=== PATIENT | female | born 1940 | race Caucasian/White ===

== ENCOUNTER 2019-09-09 17:46 | Inpatient (IN) | payer OTHER ==
[~2019-09-09] VITALS: Ht 169.1 cm; Wt 63.6 kg
[2019-09-09] MEDS ORDERED: DULOXETINE HCL30 MG PO (20:12)
[2019-09-09] MEDS ORDERED: ATORVASTATIN CA40 M1 PO (20:13)
[2019-09-09] MEDS ORDERED: ASPIR LOW81 MG PO (20:14)
[2019-09-09] MEDS ORDERED: DULOXETINE HCL60 MG PO (20:15)
[2019-09-09] MEDS ORDERED: RIVASTIGMINE1 EAC2 TD (20:15)
[2019-09-09] MEDS ORDERED: ZETIA10 MG PO (20:17)
[2019-09-09] MEDS ORDERED: ISOSORBIDE DINI30 MG PO (20:18)
[2019-09-09] MEDS ORDERED: NATURE'S BLEND F1 MG PO (20:18)
[2019-09-09] MEDS ORDERED: JANUVIA100 MG PO (20:19)
[2019-09-09] MEDS ORDERED: LANTUS SOL100 UNIT/1 SQ (20:19)
[2019-09-09] MEDS ORDERED: FUROSEMIDE40 MG PO (20:20)
[2019-09-09] MEDS ORDERED: LEVOFLOXACIN250 M2 PO (20:21)
[2019-09-09] MEDS ORDERED: METOPROLOL SUC100 M1 PO (20:22)
[2019-09-09] MEDS ORDERED: GABAPENTIN600 MG PO (20:23)
[2019-09-09] MEDS ORDERED: GLIPIZIDE5 MG PO (20:24)
[2019-09-09] MEDS ORDERED: METFORMIN HYDR500 MG PO (20:25)
[2019-09-09] MEDS ORDERED: HYDRALAZINE10 MG PO (20:26)
[2019-09-09] MEDS ORDERED: PEPCID20 MG PO (20:27)
[2019-09-09] MEDS ORDERED: RISPERIDONE0.25 M2 PO (20:29)
[2019-09-09] MEDS ORDERED: NOVOLOG FL100 UNIT/2 SQ (20:32)
[2019-09-09] MEDS ORDERED: PROVENTIL HFA6.7 GM INH (20:36)
[2019-09-09] MEDS ORDERED: HYDROXYZINE PAM25 M1 PO (20:36)
[2019-09-10 00:55] VITALS: BP 148/69
--- NOTE | 2019-09-10 00:55 | NUR ---
MYRTLE RENE a 79 year old F admitted via wheel chair from the ADMITTING as a voluntary admission. Arrived on unit at 0055. ALLERGIES: PCN AND SULFA. Vital signs are: [id number] 148/69. The client's POA,Chelle Rosa,gave verbal consent for the following forms with stated understanding: Authorization For The Release of Medical Information, Clothing List, Consent to Voluntary Admission and Hospitalization, Consent and Release Forms/Receipt of Rights, Acknowledgement of Advance Directive Information, Behavioral Health Consent Form, and Informed Consent of Medications. Admitted under the services of Dr. LYRIC KASPER,[facility]. A search was conducted and hazardous articles were removed. Client was oriented to the unit. Pacemaker noted on lt chest skin intact. SANDRA PATTERSON A
--- NOTE | 2019-09-10 01:25 | NUR ---
Dr. Ruggiero on unit and was notified of pt's admission and consult for medical management.
--- NOTE | 2019-09-10 02:14 | NUR ---
MYRTLE RENE [id number] Please refer to the physician's history and physical for past medical history, comorbid conditions, and allergies. Diagnosis: INTERMITTENT EXPLOSIVE DISORDER Robert Score: 17,AT RISK WOUND DESCRIPTIONS: Patient has callus area noted to left medial aspect of great toe measuring 0.4cm x 0.2cm x <0.1cm. Pale pink in color. No open areas noted at time of assessment. No drainage noted at time of assessment. Bilateral heels and toes have several areas that are red and blanchable at time of assessment. No open areas noted to heels and toe at time of assessment. No drainage at time of assessment. Surface the patient is resting on: Proform SKIN PREVENTION RECOMMENDATION: 1. Pressure redistribution support surface as appropriate 2. Elevate heels 3. Remove boots/TEDS every shift and reapply 4. Head of bed 30 degrees as tolerated 5. Assess nutrition and hydration 6. Manage moisture 7. Avoid the use of containment devices while in bed 8. Use absorptive products on surfaces limit layers of linens on bed 9. Turn and reposition every 1-2 hours in bed and every 1 hour in chair as tolerated 10. Weight shifts every 15 minutes while up in chair 11. Offloading with pillows or device to keep heels elevated off bed 12. Monitor skin at least every shift 13. Inspect under medical devices twice a day WOUND TREATMENT RECOMMENDATIONS: Apply moisturizing lotion to feet daily and prn for dryness. Heel raiser pro boots to bilateral feet while in bed.
[2019-09-10 06:51] LABS: BASO % 0.6 % (0.0-1.0); EOS # 0.4 10*3/uL (0.0-0.4); EOS % 5.8 % (1.0-4.0); HEMATOCRIT 30.4 % (37.0-47.0); HEMOGLOBIN 8.7 g/dl (12.0-16.0); LYMPH # 1.1 10*3/uL (1.3-4.4); LYMPH % 16.2 % (27.0-41.0); MEAN CELL VOLUME 87.9 fl (81.0-99.0); MEAN CORPUSCULAR HGB 25.1 pg (27.0-31.0); MEAN CORPUSCULAR HGB CONC 28.6 g/dl (33.0-37.0); MEAN PLATELET VOLUME 10.1 fl (9.6-12.3); MONO # 0.6 10*3/uL (0.1-1.0); MONO % 8.4 % (3.0-9.0); NEUT # 4.6 10*3/uL (2.3-7.9); NEUT % 68.7 % (47.0-73.0); PLATELET COUNT AUTOMATED 236 10*3/uL (130-400); RED BLOOD COUNT 3.46 10*6/uL (4.10-5.10); RED CELL DISTRI WIDTH 20.3 % (0-14.5); WHITE BLOOD COUNT 6.7 10*3/uL (4.8-10.8)
[2019-09-10 07:06] LABS: ALBUMIN 3.3 gm/dl (3.1-4.5); CREATININE 1.59 mg/dL (0.55-1.02); POTASSIUM 4.6 mmol/L (3.5-5.1)
[2019-09-10 07:14] LABS: THYROID STIM HORMONE (HS) 0.602 uIU/ml (0.358-4.75); TOTAL PROTEIN 7.6 gm/dL (6.4-8.2); VITAMIN D, 25-HYDROXY 13.6 ng/mL (30-100)
--- NOTE | 2019-09-10 08:00 | NUR ---
Treatment Plan meeting was held with Dr. Bernard, SASHA Bradley, RN, AT, WET SILK HANGER-S and Bed And Breakfast Innkeeper. Plan for discharge next week. Pt. [facility] to [facility] from [facility]. Will reach out to facility today to discuss discharge Planning.
[2019-09-10 08:20] VITALS: BP 157/81
--- NOTE | 2019-09-10 11:40 | NUR ---
Left Message at [facility] for Milagros to discuss discharge Planning.
--- NOTE | 2019-09-10 11:45 | NUR ---
AM GROUP PT ATTENDED MORNING GROUP THERAPY AND PARTICIPATED BY SOCIALIZING AND COLORING. PT WAS FOCUSED AND ON TASK. PT EXPRESSED NO PARANOID IDEATIONS, AGITATION OR ANXIETY WHILE IN GROUP.
--- NOTE | 2019-09-10 12:50 | NUR ---
PT COMPLAINT AND COOPERATIVE WITH CARE AND MEDICATIONS, PARTICIPATED IN GROUP COLORING EXERCISE.
--- NOTE | 2019-09-10 15:47 | NUR ---
PM GROUP PT WAS PRESENT FOR AFTERNOON GROUP THERAPY AND WAS SLEEPING SITTING IN A WHEELCHAIR AT THE TABLEL. PT WOKE AND BEGAN CONVERSING WITH PT. PT WAS MAKING STATEMENTS THAT DID NOT MAKE SENSE BUT CONTINUED TO TALK ABOUT ISSUES THAT BOTHERED HER? PT WAS HYPERVERBAL AND SEEMED TO NOT NOTICE WHEN OTHERS WOULD TRY TO TALK. PT EXPRESSED NO PARANOIA OR ANXIETY WHILE IN GROUP.
--- NOTE | 2019-09-10 18:28 | NUR ---
PATIENT IS ALERT TO PERSON, PLACE, AND SITUATION WITH CONFUSION; MEMORY GAPS NOTED. MOOD IS STABLE, CALM DEMEANOR. DENIES ANY HALLUCINATIONS, DELUSIONS, HI/SI OR PAIN. INTERACTIVE WITH STAFF AND OTHER PATIENTS. PARTICIPATES IN GROUP SESSION. 1 PERSON ASSIST WITH ACTIVITIES OF DAILY LIVING, CONTINENT OF BOWEL AND BLADDER. SET UP FOR MEALS, INTAKES ARE GOOD WITH ADEQUATE FLUIDS. UP IN WHEELCHAIR. MEDICATION COMPLAINT. Q 15 MINUTE SAFETY CHECKS MAINTAINED. NO AGGRESSION OBSERVED. CONTINUE TO MONITOR FOR AGGRESSION AND EXIT SEEKING. PROVIDE ONE ON ONE AND REDIRECTION NEEDED.
[2019-09-10 20:02] VITALS: BP 126/72
--- NOTE | 2019-09-10 20:32 | NUR ---
EVENING/LEISURE SKILLS PT IN ATTENDANCE AND PARTICIPATED BY ROLLING OUT SALT DOWN HEARTS. PT EXPRESSES NO ANXIETY, AGITATION, OR PARANOIA AT THIS TIME. PT WILL CONTINUE TO ATTEND AND PARTICIPATE IN FUTURE GROUP SESSIONS TO BEST OF PT ABILITY.
--- NOTE | 2019-09-10 23:07 | NUR ---
P-CONFUSED, PARANOID, ST/LT MEMORY DEFICITS. I-PRESENT REALITY AND REORIENT. PROVIDE 1:1 WITH THERAPEUTIC INTERVENTIONS. PROVIDE REASSURANCE AND SUPPORT. ENCOURAGE MEDICATION COMPLIANCE AND EDUCATE. MAINTAIN ELOPEMENT PRECAUTIONS.MONITOR SLEEP. R-"YOU ALL ARE IMPRISONING ME, IM BEING HELD AGAINST MY WILL, WHAT AM I DOING HERE". PT ALERT TO SELF, CONFUSED. PT REQUIRES FREQUENT REORIENTATION AND REALITY PRESENTATION DURING INTERACTIONS. PT OTHERWISE CALM, INTERACTIVE. PT EASILY REDIRECTED WHEN APPROPRIATE. PT MEDICATION COMPLIANT WITHOUT DIFFICULTY AFTER REVIEW. PT DENIES SI/HI, HALLUCINATIONS, OR PAIN. NO EXIT SEEKING OR AGGRESSIVE BEHAVIORS NOTED. PT MOBILIZES SELF USING A WHEELCHAIR, ASSIST X1, CONTINENT OF BOWEL AND BLADDER. NO SIGNS OR SYMPTOMS OF DISTRESS NOTED. P-CONTINUE TO MONITOR MOOD AND BEHAVIORS. PROVIDE 1:1 WITH THERAPEUTIC INTERVENTIONS. PRESENT REALITY AND REORIENT NEEDED. ENCOURAGE MEDICATION COMPLIANCE AND EDUCATE. MAINTAIN Q 15 MIN CHECKS AND ELOPEMENT PRECAUTIONS.
--- NOTE | 2019-09-11 02:10 | NUR ---
P-PARANOID THOUGHT PROCESS I-PRESENTED REALITY WITH REORIENTATION. PROVIDED 1:1 WITH THERAPEUTIC INTERVENTIONS. PROVIDED REASSURANCE AND SUPPORT. R-"EVERYONE IS LYING TO ME AND IM NOT GOING TO STAND FOR IT". ATTEMPTS TO PROVIDE THERAPEUTIC INTERVENTIONS WITH REDIRECTION UNSUCCESSFUL AT THIS TIME. PT ALSO REFUSES TO GO TO BED STATING "THERE IS NO POINT TO GOING TO BED, I JUST GET UP EARLY ANY HOW". PT ENCOURAGED TO SIT IN A COMFY CHAIR WITH A WARM BLANKET AT THIS TIME IN DINING ROOM TO HELP RELAX. PT SITTING QUIETLY, NO DISTRESS NOTED. P-WILL CONTINUE TO MONITOR FOR ESCALATING BEHAVIORS. REDIRECT WHEN APPROPRIATE. PRESENT REALITY AND ORIENTATION NEEDED. MAINTAIN ELOPEMENT PRECAUTIONS AND Q 15 MIN SAFETY CHECKS.
--- NOTE | 2019-09-11 02:57 | NUR ---
24 HOUR CHART CHECK COMPLETED
--- NOTE | 2019-09-11 05:43 | NUR ---
PT OBSERVED ON Q 15 MIN CHECKS TO HAVE SLEPT APPROX 3 HOURS THIS SHIFT WITH NO AWAKENINGS OR SIGNS AND SYMPTOMS OF DISTRESS NOTED.
--- NOTE | 2019-09-11 08:00 | NUR ---
Treatment Plan meeting held with Dr. Bernard, SASHA Bradley, RN, AT, RELATIONS SPECIALIST-S and Routing Machine Operator in attendance. Plan for discharge next week with return to [facility].
[2019-09-11 08:01] VITALS: BP 130/68
--- NOTE | 2019-09-11 11:13 | NUR ---
Left Message for Mitra Guerra at [facility] to discuss discharge Planning.
--- NOTE | 2019-09-11 11:44 | NUR ---
AM GROUP/EXERCISE AND BRAIN GAMES PT ATTENDED MORNING GROUP THERAPY AND PARTICIPATED IN ALL ACTIVITIES. PT EXPRESSED NO DELUSIONS OR ANXIETY WHILE IN GROUP. PT WAS ENGAGED AND ON TOPIC.
--- NOTE | 2019-09-11 11:48 | NUR ---
Spoke with Mtira Guzmán traffic administrator at [facility]. Pt. is LTC and Bed Hold at facility. Will return at discharge. Clinical Updates faxed to Facility.
--- NOTE | 2019-09-11 12:14 | NUR ---
Faxed admission clinical to [facility]. Awaiting response.
--- NOTE | 2019-09-11 13:53 | NUR ---
Clinical Updates faxed to [facility].
--- NOTE | 2019-09-11 15:39 | NUR ---
PM GROUP/WATERCOLORS AND MUSIC PT ATTENDED AFTERNOON GROUP THERAPY AND PARTICIPATED IN ALL ACTIVITIES. PT WAS QUIET AND FOCUSED. PT EXPRESSED NO PARANOID IDEATIONS WHILE IN GROUP.
[2019-09-11 16:18] LABS: BILIRUBIN NEGATIVE (NEGATIVE); BLOOD NEGATIVE (NEGATIVE); CLARITY CLEAR (CLEAR); COLOR YELLOW (YELLOW); GLUCOSE TRACE (NEGATIVE); KETONE NEGATIVE (NEGATIVE); LEUKO ESTERASE NEGATIVE (NEGATIVE); NITRITE NEGATIVE (NEGATIVE); UROBILINOGEN 0.2 E.U./dl (0.2-1.0)
[2019-09-11 16:21] LABS: BACTERIA TRACE; EPITHELIAL CELLS 15-20
--- NOTE | 2019-09-11 16:30 | NUR ---
P: DELUSIONAL THOUGTHS VOICED. PATIENT TELLING MENTAL HEALTH WORKER THAT THERE WAS A BOMB THAT WENT OFF AT THE HOSPITAL. I: ONE ON ONE AND REDIRECTION PROVIDED. R: EFFECTIVE. PATIENT EASILY REDIRECTABLE. P: CONTINUE TO MONITOR FOR HALLUCINATIONS AND AGGRESSION. PROVIDE ONE ON ONE AND REDIRECTION NEEDED.
--- NOTE | 2019-09-11 16:32 | NUR ---
PATIENT HAD CRITICAL HIGH BLOOD SUGAR, RECHECKED BLOOD SUGAR. DR. CORTEZ NOTIFIED, TO CONTINUE SLIDING SCALE AND WILL CONTINUE TO MONITOR.
[2019-09-11 19:43] VITALS: BP 118/68
--- NOTE | 2019-09-11 20:13 | NUR ---
24 HR chart check completed.
--- NOTE | 2019-09-11 21:29 | NUR ---
P-CONFUSION I-PROVIDE 1;1, ASSESS ORIENTATION, ADMINISTER MEDS, MONITOR SLEEP R-PT IS CONFUSED. ALERT TO PERSON & PLACE. SHORT & ACCOUNT RESOLUTION ANALYST MEMORY DEFICITS, DEPRESSED MOOD, LIMITED VERBAL INTERACTIONS, ATE SNACK, COMPLIANT WITH MEDS, MOVES INDEPENDENTLY VIA WHEELCHAIR. STATED THAT SHE IS TIRED & PLANS ON SLEEPING IN A BED TONIGHT. P-CONTINUE TO MONITOR & PROVIDE PHYSICAL & EMOTIONAL SUPPORT NEEDED.
--- NOTE | 2019-09-12 00:43 | NUR ---
24 HR chart check completed.
--- NOTE | 2019-09-12 06:42 | NUR ---
client at bedroom door. states she lost her bottom denture. denture was seen at 6am. told her to look in bed and she had put them under her pillow. reminded client she needs to take them out to soak at night . will pass on to next shift
[2019-09-12 07:54] VITALS: BP 137/82
--- NOTE | 2019-09-12 08:00 | NUR ---
Patient eating breakfast quietly with no c/o discomfort. Respirations easy and regular. Vital signs stable. No overt distress. WEI LAMBERT
--- NOTE | 2019-09-12 08:00 | NUR ---
Treatment Plan meeting was held with Dr. Bernard, RN, AT and Licensed Bondsman. Plan for discharge Next week. Pt. will return to [facility] at [facility] at discharge.
--- NOTE | 2019-09-12 10:50 | NUR ---
pt is alert, pleasant, is somewhat confused. pt reoriented. pt is oriented to person only, approximate to time. states that the year is 2019 and the president is Theodore. pt reoriented to time and place, receptive, stating "oh why would i say, Theodore, I know it is Trump!". will continue to reorient and redirect pt as appropriate. will continue to encourage continued medication compliance. q15 min monitoring per policy for safety.
--- NOTE | 2019-09-12 11:18 | NUR ---
DR. BURNS MADE AWARE OF PT BLOOD SUGAR 333, REPEAT OF 343. STATES TO GIVE SLIDING SCALE COVERAGE.
--- NOTE | 2019-09-12 11:46 | NUR ---
AM GROUP PT ATTENDED MORNING GROUP THERAPY AND PARTICIPATED BY READING THE NEWSPAPER AND SOCIALIZING WITH THIS ASPHALT WORKER. PT EXPRESSED NO DELUSIONAL IDEATIONS OR ANXIETY WHILE IN GROUP.
--- NOTE | 2019-09-12 15:39 | NUR ---
PM GROUP PT ATTENDED AFTERNOON GROUP THERAPY AND PARTICIPATED IN ALL ACTIVITIES. PT IS PLEASANTLY CONFUSED. PT EXPRESSED NO DELUSIONAL IDEATIONS WHILE IN GROUP.
--- NOTE | 2019-09-12 16:17 | NUR ---
PT SHOWERED AT THIS TIME. IN DINING ROOM WITH PEERS WATCHING A MOVIE.
[2019-09-12 19:54] VITALS: BP 152/77
--- NOTE | 2019-09-12 23:07 | NUR ---
P-CONFUSION I-REDIRECTION WITH 1:1 THERAPEUTIC INTERVENTIONS AND PRESENT REALTIY. EDUCATE AND ENCOURAGE MEDICATION COMPLIANCE R-PATIENT MEDICATION COMPLIANT WITH HS MEDICATIONS. PATIENT PROVIDED NOURISHMENT AT HS AND PROVIDED FLUIDS. PATIENT INTERACTING WITH PEERS IN DINING AREA. PATIENT REDIRECTED IN DINING AREA WHEN ATTEMPTING TO AMBULATE WITHOUT ASSISTANCE. PATIENT WITH UNSTEADY GAIT WHEN TRANSFERRING. PATIENT WITH NO HALLUCINATIONS OR DELUSIONS. PATIENT WITH NO SUICIDAL OR HOMICIDAL IDEATIONS. P-CONTINUE TO ENCOURAGE MEDICATION COMPLAINCE, CONTINUE TO PRESENT REALITY, ENCOURAGE GROUP THERAPY WHILE AWAKE
--- NOTE | 2019-09-13 05:31 | NUR ---
PATIENT SLEPT 8 HOURS OF INTERRUPTED SLEEP THROUGHOUT SHIFT. Q 15 MINUTE CHECKS MAINTAINED. 24 HR chart check completed.
[2019-09-13 07:38] VITALS: BP 115/65
--- NOTE | 2019-09-13 11:42 | NUR ---
AM GROUP/BEADING PT ATTENDED MORNING GROUP AND PARTICIPATED IN ALL ACITIVITES. PT WAS ON TASK AND FOCUSED. PT EXPRESSED NO DELUSIONS OR ANXIOUS IDEATIONS WHILE IN GROUP.
--- NOTE | 2019-09-13 14:26 | NUR ---
Clinical Updates faxed to Mari at [facility].
--- NOTE | 2019-09-13 14:31 | NUR ---
P: CONFUSION I: ONE ONE ONE FOR EMOTIONAL SUPPORT, REDIRECTION/ORIEATION PROVIDED R: EFFECTIVE. PATIENT IS ALERT TO PERSON ONLY WITH CONFUSION. PATIENT IS AWARE OF YEAR 2020. MOOD IS SLIGTLY ANXIOUS AND DEPRESSED. COOPERATIVE WITH CALM DEMEANOR. PATIENT REDIRECTED SEVERAL TIMES TO NOT TRY TO LEADERSHIP RECRUITER STUFF OFF THE FLOOR. POOR SAFETY AWARENESS, CUEING AND REMINDER PROVIDED. NO VOICED STATEMENTS OF HI/SI OR PAIN. DENIES HALLUCINATIONS AND DELUSIONS. Q 15 MINUTE SAFETY CHECKS MAINTAINED. MEDICATION COMPLAINT. 1 PERSON ASSIST WITH ACTIVITIES OF DAILY LIVING, CONTINENT OF BOWEL AND BLADDER. SETUP FOR MEALS, INTAKES ARE GOOD WITH ADEQUATE FLUIDS. NO AGGRESSION OBSERVED. P: CONTINUE TO MONITOR FOR AGGRESSION, HALLUCINATIONS AND EXIT SEEKING. PROVIDE ONE ON ONE AND REDIRECTION NEEDED.
--- NOTE | 2019-09-13 15:43 | NUR ---
PM GROUP/MOVIE PT WAS PRESENT FOR AFTERNOON GROUP THERAPY AND WATCHED THE MOVIE BETWEEN FALLING ASLEEP. SUDDENLY PT REMOVED HER SHIRT STATING THAT SHE HAD TO PUT IT IN THE WASHER. MHW ASSISTED PT WHO THEN WENT BACK TO SLEEP.
[2019-09-13 19:07] VITALS: BP 123/73
--- NOTE | 2019-09-13 23:47 | NUR ---
P- PLEASANTLY CONFUSED. I- ORIENTATION, MOOD AND BEHAVIOR ASSESSED. ASSESSED PT FOR SI/HI, INTENT OR PLAN. ASSESSED PT FOR S/S HALLUCINATIONS, PARANOIA AND/OR DELUSIONS. HS MEDICATIONS GIVEN ORDERED. ASSISTANCE WITH ADL CARE PROVIDED NEEDED. FALL RISK PRECAUTIONS MAINTAINED. REST ENCOURAGED. R- PT IS ALERT WITH CONFUSION. MEMORY GAPS NOTED. PT PLEASANT AND COOPERATIVE. MOOD STABLE. AFFECT APPROPRIATE. PT DENIES SI/HI, INTENT OR PLAN. PT DENIES HALLUCINATIONS, NO RESPONSE TO INTERNAL STIMULI NOTED. NO PARANOIA OR DELUSIONS NOTED. PT HAS BEEN RESTING QUIETLY IN BED WITH EYES CLOSED SINCE APPROXIMATELY 1900, PT AWAKENED EASILY FOR HS MED PASS, PT MED COMPLIANT AND RETURNED TO SLEEP. NO BEHAVIORS. NO DISTRESS NOTED. P- PLAN TO CONTINUE CURRENT TREATMENT, CONTINUE TO MONITOR MOOD AND BEHAVIORS, PROVIDE APPROPRIATE REORIENTATION, REDIRECTION AND 1:1 NEEDED.
[2019-09-14 07:23] VITALS: BP 138/77
--- NOTE | 2019-09-14 08:46 | NUR ---
DR ROBERTSON ON UNIT TO ASSESS PT, UPDATE PROVIDED.
--- NOTE | 2019-09-14 11:16 | NUR ---
SPOKE WITH DR MAGANA AT [phone] RE: PT BLOOD SUGAR RESULTS OF 408 AND REPEAT TESTING SHOWING 420. PER DR. MAGANA GIVE SLIDING SCALE AND RECHECK IN 1 HOUR.
--- NOTE | 2019-09-14 11:58 | NUR ---
AM GROUP/EXERCISE/MUSIC/LEISURE PT ATTENDS AND PARTICIPATES IN ALL GROUP ACTIVITY. PT PLEASANT AND ON TASK WITH NO PARANOIA OR ANXIETY EXPRESSED AT THIS TIME. PT WILL CONTINUE TO ATTEND AND PARTICIPATE IN FUTURE GROUP SESSIONS TO BEST OF PT ABILITY.
--- NOTE | 2019-09-14 12:22 | NUR ---
SPOKE WITH DR MAGANA AT [phone] RE: PT BLOOD SUGAR AFTER 22 UNITS AND 1 HOUR IS 278, PER DR MAGANA COVER HER WITH SLIDING SCALE AND RECHECK IN ONE HOUR. WITNESSED BY 2ND RN JULIA SCHAFER.
--- NOTE | 2019-09-14 12:22 | NUR ---
SPOKE WITH DR MAGANA AT [phone] RE: PT BLODD SUGAR OF 378 AFTER 22 UNITS OF SLIDING SCALE INSULIN COVERAGE AND [address] HAUSER, COVER WITH SLIDING SCALE AGAIN AND RECHECK IN 1 HOUR. WITNESSED BY 2ND RN JULIA SCHAFER.
--- NOTE | 2019-09-14 13:32 | NUR ---
SPOKE WITH DR MAGANA AT [phone] ADVISED THAT PT RECEIVED 20 UNITS FOR THE 378 READING AND IS NOT 315 AFTER ONE HOUR, PER DR MAGANA COVER PT WITH SLIDING SCALE. WITNESSED BY 2ND RN JULIA SCHAFER.
--- NOTE | 2019-09-14 13:41 | NUR ---
PT GIVEN 15 UNITS PER SLIDING SCALE ORDERS. PT BECOMING UPSET WITH THIS NURSE STATING "YOU NEED TO CALL MY DOCTOR AND ASK HIM" I ADVISED THAT I HAVE SPOKEN TO THE DR HERE THAT IS HANDLING HER MEDICAL CARE AND HE HAS ORDERED FOR US TO CONTINUE WITH BLOOD SUGAR CHECKS AND INSULIN COVERAGE DUE TO HER HIGH BLOOD GLUCOSE LEVELS. PT ALLOWED THIS NURSE TO GIVE INUSLIN. WILL CONTINUE TO MONITOR.
--- NOTE | 2019-09-14 14:42 | NUR ---
SPOKE WITH DR MAGANA AT [phone] ADVISED THAT PT BLOOD SUGAR IS 175 AT THIS TIME, NO FURTHER ORDERS.
--- NOTE | 2019-09-14 15:33 | NUR ---
P: PT IRRITABLE AT TIMES WITH STAFF, MOOD IS LABILE. I: PROVIDE EMOTIONAL SUPPORT AND 1:1 FOR PT TO VOICE FEELINGS R: PT ALERT TO PERSON ONLY, CONFUSION AND SHORT TERM MEMORY DEFICITS NOTED PER PT BASELINE. PT CALM, MOOD REMAINS LABILE. NO HALLUCINATIONS OR DELUSIONS NOTED AT THIS TIME. NO SUICIDAL THOUGHTS OR BEHAVIORS NOTED. PT MED COMPLIANT WITHOUT DIFFICULTY. PT UP TO WHEELCHAIR, REQUIRES 1 STAFF ASSIST FOR TRANSFERS AND CARE. PT CONTINENT OF BOWEL AND BLADDER, EPISODES OF INCONTINENCE NOTED, CARE PROVIDED NEEDED. P: MONITOR PT BEHAVIORS ON Q15 MIN SAFETY CHECKS, ENCOURAGE MED COMPLIANCE, UNABLE TO PROVIDE MED EDUCATION D/T COGNITION, PROVIDE EMOTIONAL SUPPORT AND 1:1 FOR PT TO VOICE FEELINGS, ENCOURAGE GROUP PARTICIPATION AND SOCIALIZATION.
--- NOTE | 2019-09-14 15:58 | NUR ---
PM GROUP/MOVIE/LEISURE PT IN ATTENDNACE AND PARTICIPATED BY WATCHING MOVIE. PT WORKED SOME ON A COLORING SHEET WELL. PT PLEASNAT WITH NO PARANOIA./ANXIETY EXPRESSED AT THIS TIME. PT WILL CONTINUE TO ATTEND AN DPARTICIPATE IN FUTURE GROUP SESSIONS.
[2019-09-14 20:00] VITALS: BP 157/62
--- NOTE | 2019-09-15 06:12 | NUR ---
PATIENT SLEPT 8 HOURS OF UNTERRUPTED SLEEP THROUGHOUT SHIFT. Q 15 MINUTE CHECKS MAINTAINED. 24 HR chart check completed.
[2019-09-15 07:52] VITALS: BP 149/73
--- NOTE | 2019-09-15 10:07 | NUR ---
DR KING ON UNIT TO ASSESS PT UPDATE PROVIDED.
--- NOTE | 2019-09-15 10:07 | NUR ---
DR KING ON UNIT TO ASSESS PT, UPDATE PROVIDED RE: PT HIGH BLOOD SUGAR. PER DR KING HE WILL CONTINUE TO MONITOR, NO FURTHER ORDERS AT THIS TIME.
--- NOTE | 2019-09-15 12:26 | NUR ---
P: PT ISOLATIVE AT TIMES,REFUSING TO PARTICIPATE IN MORNING GROUP. PT MOOD IS DEPRESSED. I: PROVIDE EMOTIONAL SUPPORT AND 1:1 FOR PT TO VOICE FEELINGS, ENCOURAGE GROUP PARTICIPATION AND SOCIALIZATION R: PT ALERT TO PERSON AND PLACE ONLY, CONFUSION AND SHORT TERM MEMORY DEFICITS NOTED PER PT BASELINE. PT CALM, MOOD REMAINS DEPRESSED. NO HALLUCINATIONS OR DELUSIONS NOTED. PT DENIES ANY SUICIDAL THOUGHTS OR BEHAVIORS. PT UP TO A WHEELCHAIR, REQUIRES 1 STAFF ASSIST FOR TRANSFERS AND CARE. PT CONTINENT OF BOWEL AND BLADDER, EPISODES OF INCONTINENCE NOTED, CARE PROVIDED NEEDED. P: MONITOR PT BEHAVIORS ON Q15 MIN SAFETY CHECKS, ENCOURAGE MED COMPLIANCE, ENCOURAGE GROUP PARTICIPATION AND SOCIALIZATION, PROVIDE EMOTIONAL SUPPORT AND 1:1 FOR PT TO VOICE FEELINGS.
--- NOTE | 2019-09-15 12:56 | NUR ---
AM GROUP/EXERCISE/MUSIC/COLOR BY NUMBER PT IN ATTENDNACE BUT CHOSE NOT TO PARTICIPATE. PT QUIET TO SELF OBSERVING THINGS OUT THE WINDOW. PT EXPRESSED NO PARANOIA, OR ANXIETY AT THIS TIME. PT WILL CONTINUE TO ATTEND AND PARTICIPATE TO BEST OF PT ABILITY.
[2019-09-15 20:13] VITALS: BP 158/75
--- NOTE | 2019-09-15 21:33 | NUR ---
Patient alert and oriented to person and place only with confusion noted. Memory deficits noted. Patient in diningroom during snacks but isolative to self. Mood is calm at this time but with underlying irritability noted. No overt s/s of any responding to internal stimuli noted at this time. Patient compliant with HS medications without any difficulty. Provided 1:1 for emotional support. Redirected/reoriented when appropriate. Plan to continue to encourage medication compliance. Also continue to provide emotional support and continue to redirect/reorient when needed/appropriate. Will continue to monitor moods/behaviors. Q 15 minute safety checks continued and maintained. See [facility] flowsheet for further documentation.
--- NOTE | 2019-09-16 00:17 | NUR ---
24 HR chart check completed.
--- NOTE | 2019-09-16 05:36 | NUR ---
Patient slept approx. 8.5 hours throughout shift. Q 15 minute safety checks continued and maintained.
[2019-09-16 07:53] VITALS: BP 140/57
--- NOTE | 2019-09-16 08:00 | NUR ---
Treatment Plan meeting was held with Dr. Bernard, SASHA Bradley, RN, AT, DELIVERER OUTSIDE-S and Coloring Room Man. Plan for discharge Monday with return to [facility].
--- NOTE | 2019-09-16 09:26 | NUR ---
, PODIATRY RESIDENT, ON UNIT AT THIS TIME, MADE AWARE OF CONSULT FOR NAIL CARE.
--- NOTE | 2019-09-16 09:55 | NUR ---
IP 7 days preeti per Viry at [facility]. LCD 09/16, NRD 09/17, ref # [id number].
--- NOTE | 2019-09-16 17:41 | NUR ---
P: DEPRESSED MOOD; DURING ASSESSMENT, PATIENT STATED "DEPRESSED BECAUSE I'M STILL HERE" I: ONE ON ONE FOR EMOTIONAL SUPPORT, REDIRECTION/ORIENTATION, ENCOURAGED TO PARTICIPATE IN GROUP SESSION. R: EFFECTIVE. PATIENT IS ALERT TO PERSON AND SITUATION WITH CONFUSION. LONG/SHORT TERM MEMORY DEFICITS. MOOD IS DEPRESSED. DENIES ANY HALLUCINATIONS, DELUSIONS, HI/SI OR PAIN. MEDICAITON COMPLAINT. Q 15 MINUTE SAFETY CHECKS. INTEARCTIVE WITH STAFF AND OTHER PATIENTS. PARTICIPATED IN GROUP SESSION. 1 PERSON ASSIST WITH ACTIVITIES, CONTINENT OF BOWEL AND BLADDER, SET UP FOR MEALS, INTAKES ARE GOOD WITH ADEQUATE FLUIDS. UP IN WHEEL CHAIR. CONTINUE TO MONITOR FOR HALLUCINATIONS AND AGGRESSION; PROVIDE ONE ON ONE AND REDIRECTION NEEDED.
--- NOTE | 2019-09-16 17:54 | NUR ---
PM GROUP/EXERCISE/BEADING/LEISURE PT ATTENDED AND PARTICIPATED IN ALL GROUP ACTIVITY. PT EXPRESSING CONFUSION AT THIS TIME WITH FLIGHT OF THOUGHTS. PT EXPRESSING NO PARANOIA OR ANXIETY AT THIS TIME. PT WILL CONTINUE TO ATTEND AND PARTICIPATE IN FUTURE GROUP SESSIONS TO BEST OF PT ABILITY.
[2019-09-16 20:00] VITALS: BP 158/67
--- NOTE | 2019-09-16 20:45 | NUR ---
EVENING/STORY PT IN ATTENDNACE AND PARTICIPATED IN STORY DISCUSSION. PT EXPRESSING CONFUSION THINKING THIS STAFF HAS A BABY TO HER SON. ATTEMPTED TO REDIRECT PT, BUT PT INSISTING THAT THIS GAUGE MACHINE OPERATOR KNOWS HER FAMILY. THIS WITER PLAYED ALONG. PT DID BEGIN CRYING BEFORE GROUP OVER OVER HUSBANDS . PT COMFORTED AT THI9S TIME BY STAFF. PT WILL CONTINUE TO ATTEND AND PARTICIPATE IN FUTURE GROUP SESSIONS TO BEST OF PT ABILITY.
--- NOTE | 2019-09-17 04:21 | NUR ---
P: INTERMITTENT CONFUSION WITH DELUSIONS OR FALSE REALITY OF FAMILY SAFETY. PT WAS CONCERNED THAT HER "GRANDSON" IS IN THE HOSPITAL AND NEEDS HER BECAUSE HER SON IS AND THE MOTHER LEFT THE CHILD TO FEND FOR IT'S SELF, PT CONTINUED TO RAMBLE WITH VARIED STORIES BUT CONTINUED TO BE CONCERNED WITH CHILDREN IN FAMILY AND THEIR WELL BEING I: SPOKE WITH PT 1:1, CALLED DAUGHTER TO ASSIST IN FAMILY HISTORY DETAILS: SON RYAN FROM CANCER AT AGE 43 LEAVING BEHIND MARISEL AND CHLOE, RYAN 3 MONTHS PRIOR TO SON RYAN. THERE WERE ADOPTED CHILDREN IN THE FAMILY AND A GRANDAUGHTER IS TURNING 6 YEARS OLD AND WILL CELEBRATE UPON [employer]'S DISCHARGE. DAUGHTER BELIEVES THAT SHE IS REFEREING TO A BABY THAT RYAN HAD AT A YOUNG AGE, THE MOTHER TOLD EVERYONE THAT THE BABY HAD AT AND [employer] INVESTIGATED TO FIND OUT THE CHILD HAD BEEN GIVEN UP FOR CLOSED ADOPTION. THIS HAS BEEN A STRESSOR FOR HER TO KNOW THAT THIS CHILD DOESN'T KNOW HER OR THE SIBLINGS. R: SPOKE WITH PT TALKING ABOUT REALITY AND WHAT IS CURRENTLY GOING ON WITH HER FAMILY. PT RELEIVED THAT FAMILY IS SAFE. SHE STATES THAT SHE IS MIXING THE PAST AND THE PRESENT LIKE SHE IS IN A DREAM STATE. PT CALMED AFTER SORTING OUT ANXIETIES, VALIDATION OF HER CONCERNS ABOUT FAMILY NOT "TOGETHER" P: CONTINUE TO TALK WITH PT AND PRESENT REALITY NEEDED. 15 MIN CHECKS MEDICATIONS PRESENTED PER SCHEDULE, MONITOR FOR SIDE EFFECTS
--- NOTE | 2019-09-17 05:28 | NUR ---
PT SLEPT 6+ HOURS
[2019-09-17 07:58] VITALS: BP 150/75
--- NOTE | 2019-09-17 08:00 | NUR ---
Treatment Plan meeting was held with SASHA Bradley, RN, AT, VICTORINO-S and Produce Clerk. Plan for discharge Monday with return to [facility].
--- NOTE | 2019-09-17 08:00 | NUR ---
Patient eating in dining room with no c/o discomfort. Respirations easy and regular. Vital signs stable. No overt distress. WEI LAMBERT
--- NOTE | 2019-09-17 09:23 | NUR ---
intermittent confusion. pt assessed for orientation level, mood, and affect. pt reoriented and provided with redirection. pt oriented to person and place, approximate to time. pt states it is September 28, 2025, then changes it to no "20". pt states the president is Ja[place]. pt denies sadness and depressed mood. affect is appropriate to content. pt receptive to reorientation. will continue to monitor pt's mood. reorient and redirect when appropraite. encourage participation in group therapy and regan milieu for socialization and peer support. will continue to monitor q15 min per policy for safety.
--- NOTE | 2019-09-17 11:42 | NUR ---
ANGELIA GROUP/EXERCISE AND SILVIANO PT ATTENDED MORNING GROUP THERAPY AND PARTICIPATED IN ALL ACTIVITIES. PT EXPRESSED NO PARANOID IDEATIONS WHILE IN GROUP. PT IS VERY CONFUSED BUT PLEASANT.
--- NOTE | 2019-09-17 12:09 | NUR ---
Left Message for Mitra Guzmán Mixer Operator Vacuum [employer] at [facility] at [facility] to notify of plans to discharge tommorow.
--- NOTE | 2019-09-17 14:31 | NUR ---
Received call from Michelle, patient's [facility] complex case manager, regarding discharge planning. Explained per the nurse's notes it looks like the patient will be discharged tomorrow to [facility] at [facility]. Faxed continued review stay clinical to [facility]. Awaiting response.
--- NOTE | 2019-09-17 15:34 | NUR ---
PM GROUP PT WAS PRESENT FOR AFTERNOON GROUP THERAPY SLEEPING IN A COMFY CHAIR AT THE BACK OF THE ROOM. PT WOULD WAKE, OBSERVE FOR A WHILE AND GO BACK TO SLEEP.
--- NOTE | 2019-09-17 16:24 | NUR ---
PER CALL FROM [facility] APPROVED FROM 09/17-09/21 WITH NRD 09/22. AUTH NUMBER [id number].
[2019-09-17 19:37] VITALS: BP 155/70
--- NOTE | 2019-09-17 22:15 | NUR ---
Patient alert and oriented to person and place only with confusion noted. Memory deficits noted. Patient in diningroom during snacks but isolative to self. Mood is calm,pleasant,and cooperative at this time. No overt s/s of any responding to internal stimuli noted at this time. Patient more interactive with staff but otherwise remains isolative when in diningroom with other patients. Patient compliant with HS medications without any difficulty. Provided 1:1 for emotional support. Redirected/reoriented when appropriate. Plan to continue to encourage medication compliance. Also continue to provide emotional support and continue to redirect/reorient when needed/appropriate. Will continue to monitor moods/behaviors. Q 15 minute safety checks continued and maintained. See [facility] flowsheet for further documentation.
--- NOTE | 2019-09-18 00:11 | NUR ---
24 HR chart check completed.
--- NOTE | 2019-09-18 06:00 | NUR ---
Patient slept approx. 8 hours throughout shift. Q 15 minute safety checks continued and maintained.
[2019-09-18 08:00] VITALS: BP 153/68
[2019-09-18] MEDS ORDERED: DULOXETINE HCL60 MG PO (09:11)
[2019-09-18] MEDS ORDERED: VITAMIN D3125 MC1 PO (09:11)
[2019-09-18] MEDS ORDERED: ARIPIPRAZOLE10 MG PO (09:11)
[2019-09-18] MEDS ORDERED: MEMANTINE HCL10 MG PO (09:11)
--- NOTE | 2019-09-18 09:43 | NUR ---
CALL PLACED TO DR. BOWMAN'S TEAM. DR. CORTEZ MADE AWARE OF PT BEING DISCHARGED SOON DISCHARGE PACKET IS FINALIZED, MEDICAL MEDS NEEDING REVIEWED. STATES "OK, THANKS"
--- NOTE | 2019-09-18 11:18 | NUR ---
Spoke with Pt. daughter Liilana to notify of planned discharge for today. Daughter would like transportation arranged. Will call up health system transportation once discharge is complete.
--- NOTE | 2019-09-18 11:26 | NUR ---
Spoke with Mitra Guzmán junior network administrator at [facility] at [facility]. Notified of discharge and faxed discharge Paperwork.
--- NOTE | 2019-09-18 11:42 | NUR ---
AM GROUP PT ATTENDED MORNING GROUP THERAPY AND WAS PREOCCUPIED WITH CLOTHING THAT SHE STATED WAS STOLEN. PT LEFT THE ROOM ONCE AND RETURNED. PT THEN LOOKED AT [employer]. PT IS SET TO BE DISCHARGED FROM THE UNIT TODAY.
--- NOTE | 2019-09-18 12:10 | NUR ---
DR CORTEZ UPDATED ON PT DISCHARGE. STATED SHE WOULD TEXT DR BOWMAN TO REMIND HIM TO CONTINUE MEDICATIONS.
--- NOTE | 2019-09-18 13:10 | NUR ---
nurse to nurse report given to "kerri", receiving nurse at [facility] at . verbalizes understanding. provided with unit phone number for any further questions.
--- NOTE | 2019-09-18 13:37 | NUR ---
[facility] X 2 ATTENDANTS AND SECURITY ON UNIT AT THIS TIME. ALL BELONGINGS AND DISCHARGE PAPERWORK SENT WITH PT AT THIS TIME.
--- NOTE | 2019-09-19 11:55 | NUR ---
Faxed discharge clinical to [facility].
== END 2019-09-18 13:37 | disposition other institution (70) | DRG 883 ==
LOC: 3N 17:46
PROVIDERS: ADMIT Psychiatry & Neurology Psychiatry
DX: F63.81 Intermittent explosive disorder (principal); N18.3 Chronic kidney disease, stage 3 (moderate); E11.65 Type 2 diabetes mellitus with hyperglycemia; F60.0 Paranoid personality disorder; G30.9 Alzheimer's disease, unspecified; F02.80 Dementia in other diseases classified elsewhere, unspecified severity, without behavioral disturbance, psychotic disturbance, mood disturbance, and anxiety; J44.9 Chronic obstructive pulmonary disease, unspecified; I25.10 Atherosclerotic heart disease of native coronary artery without angina pectoris; K21.9 Gastro-esophageal reflux disease without esophagitis; E11.42 Type 2 diabetes mellitus with diabetic polyneuropathy; I12.9 Hypertensive chronic kidney disease with stage 1 through stage 4 chronic kidney disease, or unspecified chronic kidney disease; F32.9 Major depressive disorder, single episode, unspecified; E53.8 Deficiency of other specified B group vitamins; Z79.4 Long term (current) use of insulin; Z87.891 Personal history of nicotine dependence; Z88.1 Allergy status to other antibiotic agents; Z88.0 Allergy status to penicillin; E78.5 Hyperlipidemia, unspecified; Z79.899 Other long term (current) drug therapy